=== PATIENT | male | born 1995 | race Caucasian/White ===

== ENCOUNTER 2019-03-27 09:22 | Inpatient (IN) | payer MEDICAID ==
[~2019-03-27] VITALS: Ht 180.3 cm; Wt 139.3 kg
[2019-03-27] MEDS ORDERED: DIVA125T32 PO (09:49)
[2019-03-27] MEDS ORDERED: HALO50VI4 IM (09:49)
[2019-03-27 09:54] LABS: BASOPHILS % (AUTO) 0.8 % (0.0-2.0); EOSINOPHILS % (AUTO) 0.5 % (1.0-6.0); HEMATOCRIT 42.3 % (41-53); LYMPHOCYTES % (AUTO) 18.7 % (22.0-44.0); MEAN CORPUSCULAR HEMOGLOBIN 28.1 pg (26.0-34.0); MEAN CORPUSCULAR HGB CONC 33.2 G/dL (31.0-37.0); MEAN CORPUSCULAR VOLUME 85 fL (80-100); MONOCYTES # (AUTO) 0.4 K/uL (0.1-1.0); MONOCYTES % (AUTO) 7.8 % (2.0-9.0); NEUTROPHILS # (AUTO) 3.9 K/uL (1.8-7.7); NEUTROPHILS % (AUTO) 72.2 % (40.0-70.0); PLATELET COUNT (AUTO) 269 K/uL (150-450); RED BLOOD CELL COUNT(AUTO) 4.99 MIL/uL (4.50-5.90); RED CELL DISTRIBUTION WIDTH 14.4 % (11.5-14.5)
[2019-03-27 09:59] LABS: AMPHET/METH SCREEN,URINE NEGATIVE (NEGATIVE); BARBITURATE SCREEN, URINE NEGATIVE (NEGATIVE); BENZODIAZEPINES SCREEN,URINE NEGATIVE (NEGATIVE); CANNABINOID SCREEN,URINE POSITIVE (NEGATIVE); COCAINE SCREEN,URINE NEGATIVE (NEGATIVE); METHADONE SCREEN, URINE NEGATIVE (NEGATIVE); OPIATE SCREEN,URINE NEGATIVE (NEGATIVE)
[2019-03-27 10:00] LABS: PHENCYCLIDINE SCREEN,URINE NEGATIVE (NEGATIVE)
[2019-03-27 10:01] LABS: ANION GAP 9 mmol/L (8-16); CALCIUM, TOTAL 9.2 mg/dL (8.8-10.5); CARBON DIOXIDE 26 mmol/L (22-29); CHLORIDE 106 mmol/L (98-107); CREATININE 0.83 mg/dL (0.60-1.30); GLOMERULAR FILTR. RATE CALC > 60 mL/min (>60); GLUCOSE,RANDOM 102 mg/dL (70-110); SODIUM SERUM 141 mmol/L (136-145); UREA NITROGEN, BLOOD 17 mg/dL (7-18)
[2019-03-27 10:05] LABS: ALANINE AMINOTRANSFERASE 90 U/L (12-78); ALKALINE PHOSPHATASE 97 U/L (46-116); ASPARTATE AMINOTRANSFERASE 33 U/L (15-37); BILIRUBIN,TOTAL 0.2 mg/dL (0.1-1.0); TOTAL PROTEIN, SERUM 8.2 g/dL (6.4-8.2)
[2019-03-27 10:48] LABS: VALPROIC ACID 3 mcg/mL (50-100)
[2019-03-27] MEDS ORDERED: LORazepam 2 MG TABLET PO ONE (13:30)
[2019-03-27] MEDS ORDERED: OLANZapine 5 MG TABLET PO ONE (13:30)
[2019-03-27 16:52] VITALS: BP 153/91
[2019-03-27] MEDS ORDERED: MAG HYDROX/AL HYDROX/SIMETH ES 30 ML SUSPENSION UDCUP PO PRN (17:00)
[2019-03-27] MEDS ORDERED: LOPERAMIDE HCL 2 MG CAPSULE PO PRN (17:00)
[2019-03-27] MEDS ORDERED: DOCUSATE SODIUM 100 MG CAPSULE PO PRN (17:00)
[2019-03-27] MEDS ORDERED: CloNIDine HCL 0.1 MG TABLET PO PRN (17:00)
[2019-03-27] MEDS ORDERED: ACETAMINOPHEN 325 MG TABLET PO PRN (17:00)
[2019-03-27] MEDS ORDERED: ONDANSETRON HCL 4 MG TABLET PO PRN (17:00)
[2019-03-27] MEDS ORDERED: GuaiFENesin/D-METHORPHAN [SUGAR-FREE] 200-20MG/10 ML SYRUP UDCUP PO PRN (17:00)
[2019-03-27] MEDS ORDERED: IBUPROFEN 400 MG TABLET PO PRN (17:00)
[2019-03-27] MEDS ORDERED: NICOTINE 14 MG/24 HOUR PATCH TD PRN (17:00)
[2019-03-27] MEDS ORDERED: ALBUTEROL SULFATE HFA 90 MCG/PUFF 8 GM INHALER IH PRN (17:00)
[2019-03-27] MEDS ORDERED: MAGNESIUM HYDROXIDE SUSPENSION 30 ML UDCUP PO PRN (17:00)
[2019-03-27] MEDS ORDERED: PETROLATUM,WHITE 28 GM JELLY TP PRN (17:00)
[2019-03-27] MEDS: AmLODIPine BESYLATE 5 MG TABLET PO SCH (17:21)
[2019-03-28 03:00] VITALS: BP 126/82
[2019-03-28 07:22] LABS: BASOPHILS % (AUTO) 0.7 % (0.0-2.0); HEMATOCRIT 43.1 % (41-53); HEMOGLOBIN 14.2 g/dL (13.5-17.5); LYMPHOCYTES # (AUTO) 1.7 K/uL (1.0-4.8); LYMPHOCYTES % (AUTO) 30.9 % (22.0-44.0); MEAN CORPUSCULAR HEMOGLOBIN 28.2 pg (26.0-34.0); MEAN CORPUSCULAR VOLUME 86 fL (80-100); MONOCYTES # (AUTO) 0.5 K/uL (0.1-1.0); MONOCYTES % (AUTO) 8.4 % (2.0-9.0); NEUTROPHILS # (AUTO) 3.3 K/uL (1.8-7.7); PLATELET COUNT (AUTO) 269 K/uL (150-450); RED BLOOD CELL COUNT(AUTO) 5.05 MIL/uL (4.50-5.90); RED CELL DISTRIBUTION WIDTH 14.2 % (11.5-14.5)
[2019-03-28 07:49] LABS: HEMOGLOBIN A1C 5.6 % (4.5-6.2)
[2019-03-28 07:50] LABS: ALANINE AMINOTRANSFERASE 81 U/L (12-78); ALBUMIN 3.7 g/dL (3.4-5.0); ALKALINE PHOSPHATASE 91 U/L (46-116); ANION GAP 6 mmol/L (8-16); ASPARTATE AMINOTRANSFERASE 34 U/L (15-37); BILIRUBIN,TOTAL 0.3 mg/dL (0.1-1.0); CALCIUM, TOTAL 9.2 mg/dL (8.8-10.5); CARBON DIOXIDE 30 mmol/L (22-29); CHLORIDE 109 mmol/L (98-107); CHOLESTEROL 189 mg/dL (131-200); CREATININE 0.75 mg/dL (0.60-1.30); GLOMERULAR FILTR. RATE CALC > 60 mL/min (>60); GLUCOSE,RANDOM 101 mg/dL (70-110); HDL CHOLESTEROL 47 mg/dL (40-60); LDL CHOL (CALC.) 121 mg/dL (0-130); POTASSIUM 4.9 mmol/L (3.5-5.1); SODIUM SERUM 145 mmol/L (136-145); THYROID STIMULATING HORMONE 0.96 uIU/mL (0.36-3.74); TOTAL PROTEIN, SERUM 7.2 g/dL (6.4-8.2); TRIGLYCERIDES 106 mg/dL (15-150); UREA NITROGEN, BLOOD 10 mg/dL (7-18)
[2019-03-28] MEDS: AmLODIPine BESYLATE 5 MG TABLET PO SCH (08:00)
[2019-03-28 08:17] VITALS: BP 140/66
[2019-03-28] MEDS: DIVALPROEX SODIUM 250 MG ER TABLET PO SCH (16:09)
[2019-03-28 16:40] VITALS: BP 151/76
[2019-03-29 06:42] VITALS: BP 132/78
[2019-03-29] MEDS: HALOPERIDOL 5 MG TABLET PO PRN (08:12)
[2019-03-29] MEDS: AmLODIPine BESYLATE 5 MG TABLET PO SCH (08:12)
[2019-03-29] MEDS: DIVALPROEX SODIUM 250 MG ER TABLET PO SCH ×2 (08:13→16:48)
[2019-03-29] MEDS: LORazepam 2 MG TABLET PO PRN ×2 (08:13→16:49)
[2019-03-29 08:14] VITALS: BP 126/73
[2019-03-29] MEDS: ARIPiprazole 10 MG TABLET PO SCH ×2 (10:00→16:49)
[2019-03-29 16:00] VITALS: BP 141/73
[2019-03-29] MEDS: ZOLPIDEM TARTRATE 10 MG TABLET PO PRN (20:51)
[2019-03-30 00:34] VITALS: BP 120/58
[2019-03-30 08:12] VITALS: BP 124/65
[2019-03-30] MEDS: AmLODIPine BESYLATE 5 MG TABLET PO SCH (08:29)
[2019-03-30] MEDS: ARIPiprazole 10 MG TABLET PO SCH ×2 (08:29→16:31)
[2019-03-30] MEDS: DIVALPROEX SODIUM 250 MG ER TABLET PO SCH ×2 (08:29→16:31)
[2019-03-30] MEDS ORDERED: HALOPERIDOL LACTATE 5 MG/ML VIAL ONE (09:40)
[2019-03-30] MEDS ORDERED: LORazepam 2 MG/ML VIAL ONE (09:41)
[2019-03-30] MEDS ORDERED: HALOPERIDOL LACTATE 5 MG/ML VIAL IM ONE (09:45)
[2019-03-30] MEDS ORDERED: LORazepam 2 MG/ML VIAL IM ONE (09:45)
[2019-03-30] MEDS ORDERED: DiphenhydrAMINE HCL 50 MG/ML VIAL IM ONE (09:45)
[2019-03-30] MEDS ORDERED: ARIPiprazole ER SUSPENSION 400 MG PRE-FILLED DUAL CHAMBER SYRINGE IM ONE (10:45)
[2019-03-30 16:00] VITALS: BP 116/70
[2019-03-30] MEDS: ZOLPIDEM TARTRATE 10 MG TABLET PO PRN (20:30)
[2019-03-31 06:17] VITALS: BP 139/79
[2019-03-31 07:59] VITALS: BP 134/74
[2019-03-31] MEDS: AmLODIPine BESYLATE 5 MG TABLET PO SCH (08:02)
[2019-03-31] MEDS: ARIPiprazole 10 MG TABLET PO SCH ×2 (08:02→17:38)
[2019-03-31] MEDS: DIVALPROEX SODIUM 250 MG ER TABLET PO SCH ×2 (08:02→17:38)
[2019-03-31] MEDS: LORazepam 2 MG TABLET PO PRN ×3 (08:02→21:38)
[2019-03-31 16:06] VITALS: BP 127/89
[2019-03-31] MEDS: ZOLPIDEM TARTRATE 10 MG TABLET PO PRN (21:38)
[2019-04-01 06:08] VITALS: BP 125/93
[2019-04-01] MEDS: ARIPiprazole 10 MG TABLET PO SCH ×2 (08:13→16:05)
[2019-04-01] MEDS: AmLODIPine BESYLATE 5 MG TABLET PO SCH (08:13)
[2019-04-01] MEDS: DIVALPROEX SODIUM 250 MG ER TABLET PO SCH ×2 (08:13→16:05)
[2019-04-01 08:35] VITALS: BP 142/80
[2019-04-01 16:00] VITALS: BP 145/64
[2019-04-01] MEDS: HALOPERIDOL 5 MG TABLET PO PRN (16:05)
[2019-04-01] MEDS: LORazepam 2 MG TABLET PO PRN ×2 (16:05→20:30)
[2019-04-01] MEDS: ZOLPIDEM TARTRATE 10 MG TABLET PO PRN (20:30)
[2019-04-02 06:28] VITALS: BP 150/73
[2019-04-02] MEDS: LORazepam 2 MG TABLET PO PRN ×3 (06:50→20:46)
[2019-04-02] MEDS: DIVALPROEX SODIUM 250 MG ER TABLET PO SCH ×2 (08:00→16:24)
[2019-04-02] MEDS: AmLODIPine BESYLATE 5 MG TABLET PO SCH (08:00)
[2019-04-02 08:05] VITALS: BP 139/89
[2019-04-02] MEDS: ARIPiprazole 10 MG TABLET PO SCH ×2 (08:30→16:24)
[2019-04-02 16:05] VITALS: BP 140/81
[2019-04-02] MEDS: HALOPERIDOL 5 MG TABLET PO PRN (16:24)
[2019-04-03 06:10] VITALS: BP 134/86
[2019-04-03] MEDS: DIVALPROEX SODIUM 250 MG ER TABLET PO SCH ×2 (08:07→16:01)
[2019-04-03] MEDS: AmLODIPine BESYLATE 5 MG TABLET PO SCH (08:07)
[2019-04-03] MEDS: ARIPiprazole 10 MG TABLET PO SCH ×2 (08:07→16:01)
[2019-04-03 08:38] VITALS: BP 140/99
[2019-04-03] MEDS: LORazepam 2 MG TABLET PO PRN ×2 (16:01→20:31)
[2019-04-03] MEDS: HALOPERIDOL 5 MG TABLET PO PRN (16:01)
[2019-04-03 17:00] VITALS: BP 162/84
[2019-04-03] MEDS ORDERED: AmLODIPine BESYLATE 5 MG TABLET PO ONE (18:00)
[2019-04-03] MEDS: ZOLPIDEM TARTRATE 10 MG TABLET PO PRN (20:31)
[2019-04-04 03:45] VITALS: BP 136/86
[2019-04-04 08:24] VITALS: BP 140/88
[2019-04-04] MEDS: ARIPiprazole 10 MG TABLET PO SCH ×2 (09:04→18:00)
[2019-04-04] MEDS: LORazepam 2 MG TABLET PO PRN ×2 (09:04→16:34)
[2019-04-04] MEDS: DIVALPROEX SODIUM 250 MG ER TABLET PO SCH ×2 (09:04→18:00)
[2019-04-04] MEDS: HALOPERIDOL 5 MG TABLET PO PRN ×2 (09:04→16:34)
[2019-04-04] MEDS: AmLODIPine BESYLATE 10 MG TABLET PO SCH (10:40)
[2019-04-04 16:00] VITALS: BP 144/83
[2019-04-04] MEDS ORDERED: DiphenhydrAMINE HCL 50 MG/ML VIAL IM ONE (19:15)
[2019-04-04] MEDS ORDERED: LORazepam 2 MG/ML VIAL IM ONE (19:15)
[2019-04-04] MEDS ORDERED: HALOPERIDOL LACTATE 5 MG/ML VIAL IM ONE (19:15)
[2019-04-05 05:43] VITALS: BP 132/85
[2019-04-05 08:01] VITALS: BP 151/89
[2019-04-05] MEDS: ARIPiprazole 10 MG TABLET PO SCH (08:24)
[2019-04-05] MEDS: AmLODIPine BESYLATE 10 MG TABLET PO SCH (08:24)
[2019-04-05] MEDS: DIVALPROEX SODIUM 250 MG ER TABLET PO SCH ×2 (08:24→16:34)
[2019-04-05 16:00] VITALS: BP 139/81
[2019-04-05] MEDS: HALOPERIDOL 5 MG TABLET PO PRN (16:34)
[2019-04-05] MEDS: LORazepam 2 MG TABLET PO PRN (16:34)
[2019-04-06 00:12] VITALS: BP 140/80
[2019-04-06] MEDS: LORazepam 2 MG TABLET PO PRN ×4 (00:13→16:38)
[2019-04-06] MEDS: ZOLPIDEM TARTRATE 10 MG TABLET PO PRN ×2 (00:13→21:38)
[2019-04-06 08:01] VITALS: BP 128/68
[2019-04-06] MEDS: DIVALPROEX SODIUM 250 MG ER TABLET PO SCH ×2 (08:30→16:38)
[2019-04-06] MEDS: AmLODIPine BESYLATE 10 MG TABLET PO SCH (08:30)
[2019-04-06] MEDS: ARIPiprazole 10 MG TABLET PO SCH (08:30)
[2019-04-06] MEDS: HALOPERIDOL 5 MG TABLET PO PRN ×3 (08:30→16:38)
[2019-04-06 16:46] VITALS: BP 127/85
[2019-04-07 04:32] VITALS: BP 144/90
[2019-04-07 08:00] VITALS: BP 133/75
[2019-04-07] MEDS: ARIPiprazole 10 MG TABLET PO SCH (08:09)
[2019-04-07] MEDS: DIVALPROEX SODIUM 250 MG ER TABLET PO SCH ×2 (08:09→16:16)
[2019-04-07] MEDS: LORazepam 2 MG TABLET PO PRN ×2 (08:09→16:16)
[2019-04-07] MEDS: AmLODIPine BESYLATE 10 MG TABLET PO SCH (08:09)
[2019-04-07] MEDS: HALOPERIDOL 5 MG TABLET PO PRN (16:16)
[2019-04-07 21:31] VITALS: BP 137/71
[2019-04-08 05:21] VITALS: BP 135/72
[2019-04-08 08:06] VITALS: BP 154/76
[2019-04-08] MEDS: DIVALPROEX SODIUM 250 MG ER TABLET PO SCH ×2 (08:13→16:39)
[2019-04-08] MEDS: ARIPiprazole 10 MG TABLET PO SCH (08:13)
[2019-04-08] MEDS: AmLODIPine BESYLATE 10 MG TABLET PO SCH (08:13)
[2019-04-08 16:31] VITALS: BP 121/88
[2019-04-08] MEDS: LORazepam 2 MG TABLET PO PRN (16:39)
[2019-04-08] MEDS: HALOPERIDOL 5 MG TABLET PO PRN (16:39)
[2019-04-08] MEDS: ZOLPIDEM TARTRATE 10 MG TABLET PO PRN (20:08)
[2019-04-09 00:12] VITALS: BP 137/84
[2019-04-09] MEDS: LORazepam 2 MG TABLET PO PRN ×2 (00:17→09:12)
[2019-04-09 08:08] VITALS: BP 138/81
[2019-04-09] MEDS: ARIPiprazole 10 MG TABLET PO SCH (09:11)
[2019-04-09] MEDS: DIVALPROEX SODIUM 250 MG ER TABLET PO SCH ×2 (09:11→16:46)
[2019-04-09] MEDS: AmLODIPine BESYLATE 10 MG TABLET PO SCH (09:11)
[2019-04-09] MEDS: HALOPERIDOL 5 MG TABLET PO PRN (09:12)
[2019-04-10 00:44] VITALS: BP 125/72
[2019-04-10] MEDS: DIVALPROEX SODIUM 250 MG ER TABLET PO SCH ×2 (08:13→16:22)
[2019-04-10] MEDS: AmLODIPine BESYLATE 10 MG TABLET PO SCH (08:13)
[2019-04-10] MEDS: ARIPiprazole 10 MG TABLET PO SCH (08:13)
[2019-04-10] MEDS: HALOPERIDOL 5 MG TABLET PO PRN ×3 (10:49→20:29)
[2019-04-10] MEDS: LORazepam 2 MG TABLET PO PRN ×3 (10:49→20:29)
[2019-04-10 12:34] VITALS: BP 142/84
[2019-04-10 16:08] VITALS: BP 140/83
[2019-04-10] MEDS: ZOLPIDEM TARTRATE 10 MG TABLET PO PRN (20:29)
[2019-04-11 00:23] VITALS: BP 140/72
[2019-04-11] MEDS: ARIPiprazole 10 MG TABLET PO SCH (08:24)
[2019-04-11] MEDS: AmLODIPine BESYLATE 10 MG TABLET PO SCH (08:24)
[2019-04-11] MEDS: DIVALPROEX SODIUM 250 MG ER TABLET PO SCH ×2 (08:24→16:04)
[2019-04-11 10:15] VITALS: BP 140/82
[2019-04-11] MEDS: HALOPERIDOL 5 MG TABLET PO PRN ×2 (16:04→20:20)
[2019-04-11] MEDS: LORazepam 2 MG TABLET PO PRN ×2 (16:04→20:20)
[2019-04-11 16:18] VITALS: BP 131/97
[2019-04-11] MEDS: ZOLPIDEM TARTRATE 10 MG TABLET PO PRN (20:20)
[2019-04-12 02:53] VITALS: BP 129/85
[2019-04-12 08:09] VITALS: BP 127/78
[2019-04-12] MEDS: ARIPiprazole 10 MG TABLET PO SCH (08:26)
[2019-04-12] MEDS: AmLODIPine BESYLATE 10 MG TABLET PO SCH (08:26)
[2019-04-12] MEDS: DIVALPROEX SODIUM 250 MG ER TABLET PO SCH ×2 (08:26→16:25)
[2019-04-12] MEDS: LORazepam 2 MG TABLET PO PRN (08:26)
[2019-04-12 16:00] VITALS: BP 134/88
[2019-04-13 02:41] VITALS: BP 132/81
[2019-04-13] MEDS: DIVALPROEX SODIUM 250 MG ER TABLET PO SCH (09:00)
[2019-04-13] MEDS: ARIPiprazole 10 MG TABLET PO SCH (09:00)
[2019-04-13] MEDS: AmLODIPine BESYLATE 10 MG TABLET PO SCH (09:00)
[2019-04-13] MEDS ORDERED: DIVA250T45 PO (11:44)
[2019-04-13] MEDS ORDERED: ARIP10TA8 PO (11:46)
[2019-04-13] MEDS ORDERED: AMLO5TAB4 PO (11:47)
== END 2019-04-13 13:20 | disposition home or self-care (01) | DRG 750 ==
LOC: EMS 09:25 → B3A 15:04
PROVIDERS: ADMIT Psychiatry & Neurology Child & Adolescent Psychiatry; ATTEND Psychiatry & Neurology Child & Adolescent Psychiatry
DX: F25.0 Schizoaffective disorder, bipolar type (principal); Z68.41 Body mass index [BMI] 40.0-44.9, adult; B17.9 Acute viral hepatitis, unspecified; R74.0 Nonspecific elevation of levels of transaminase and lactic acid dehydrogenase [LDH]; E66.9 Obesity, unspecified; R45.87 Impulsiveness; Z59.0 Homelessness; Z91.14 Patient's other noncompliance with medication regimen
CPT/HCPCS: 83036; 84443; G0480; J0401; J1200; J1630; J2060

== ENCOUNTER 2019-10-19 01:33 | Inpatient (IN) | payer MEDICAID, OTHER ==
[~2019-10-19] VITALS: Ht 182.9 cm; Wt 146.8 kg
[~2019-10-19 01:33] MED LIST: AMLO5TAB4 PO; ARIP10TA8 PO; DIVA250T45 PO
[2019-10-19 02:10] LABS: BASOPHILS % (AUTO) 0.7 % (0.0-2.0); EOSINOPHILS % (AUTO) 0.4 % (1.0-6.0); HEMATOCRIT 42.6 % (41-53); HEMOGLOBIN 14.4 g/dL (13.5-17.5); LYMPHOCYTES # (AUTO) 2.1 K/uL (1.0-4.8); LYMPHOCYTES % (AUTO) 23.6 % (22.0-44.0); MEAN CORPUSCULAR HEMOGLOBIN 28.6 pg (26.0-34.0); MEAN CORPUSCULAR HGB CONC 33.8 G/dL (31.0-37.0); MEAN CORPUSCULAR VOLUME 85 fL (80-100); MONOCYTES # (AUTO) 0.7 K/uL (0.1-1.0); MONOCYTES % (AUTO) 7.2 % (2.0-9.0); NEUTROPHILS # (AUTO) 6.2 K/uL (1.8-7.7); NEUTROPHILS % (AUTO) 68.1 % (40.0-70.0); PLATELET COUNT (AUTO) 302 K/uL (150-450); RED BLOOD CELL COUNT(AUTO) 5.05 MIL/uL (4.50-5.90)
[2019-10-19 02:19] LABS: ANION GAP 12 mmol/L (8-16); CALCIUM, TOTAL 9.3 mg/dL (8.8-10.5); CARBON DIOXIDE 26 mmol/L (22-29); CHLORIDE 104 mmol/L (98-107); CREATININE 0.78 mg/dL (0.60-1.30); GLOMERULAR FILTR. RATE CALC > 60 mL/min (>60); GLUCOSE,RANDOM 104 mg/dL (70-110); POTASSIUM 4.1 mmol/L (3.5-5.1); SODIUM SERUM 142 mmol/L (136-145); UREA NITROGEN, BLOOD 6 mg/dL (7-18)
[2019-10-19 02:25] LABS: ALANINE AMINOTRANSFERASE 156 U/L (12-78); ALKALINE PHOSPHATASE 84 U/L (46-116); ASPARTATE AMINOTRANSFERASE 44 U/L (15-37); BILIRUBIN,TOTAL 0.2 mg/dL (0.1-1.0); TOTAL PROTEIN, SERUM 7.9 g/dL (6.4-8.2)
[2019-10-19] MEDS ORDERED: IBUPROFEN 800 MG TABLET PO ONE (02:30)
[2019-10-19] MEDS ORDERED: QUEtiapine FUMARATE 100 MG TABLET PO PRN (04:00)
[2019-10-19] MEDS ORDERED: INFLUENZA VIRUS VACCINE QVS 2019-20 (3YR+)/PF 60 MCG/0.5 ML SYRINGE IM ONE (05:30)
[2019-10-19 06:03] VITALS: BP 137/89
[2019-10-19 08:17] VITALS: BP 137/79
[2019-10-19] MEDS ORDERED: TUBERCULIN, PURIFIED PROTEIN DERIVATIVE 5 TU/0.1 ML SYRINGE ID ONE (14:30)
[2019-10-19] MEDS ORDERED: GuaiFENesin/D-METHORPHAN [SUGAR-FREE] 200-20MG/10 ML SYRUP UDCUP PO PRN (14:30)
[2019-10-19] MEDS ORDERED: HydrOXYzine PAMOATE 50 MG CAPSULE PO PRN (14:30)
[2019-10-19] MEDS ORDERED: PROMETHAZINE HCL 25 MG TABLET PO PRN (14:30)
[2019-10-19] MEDS ORDERED: PALIPERIDONE 1.5 MG ER TABLET PO PRN (14:30)
[2019-10-19] MEDS ORDERED: PALIPERIDONE PALMITATE 234 MG/1.5 ML SYRINGE IM ONE (14:30)
[2019-10-19] MEDS ORDERED: AMLO10TA7 PO (14:31)
[2019-10-19 16:10] VITALS: BP 163/88
[2019-10-19] MEDS: THIAMINE HCL 100 MG TABLET PO SCH (16:27)
[2019-10-19] MEDS: ZOLPIDEM TARTRATE 10 MG TABLET PO PRN (20:50)
[2019-10-19] MEDS ORDERED: PALIPERIDONE 3 MG ER TABLET PO SCH (21:00)
[2019-10-20 04:42] VITALS: BP 115/60
[2019-10-20 08:05] VITALS: BP 139/79
[2019-10-20] MEDS: NALTREXONE HCL 50 MG TABLET PO SCH (08:28)
[2019-10-20] MEDS: MULTIVITAMINS WITH MINERALS, THERAPEUTIC TABLET PO SCH (08:28)
[2019-10-20] MEDS: FOLIC ACID 1 MG TABLET PO SCH (08:28)
[2019-10-20] MEDS: THIAMINE HCL 100 MG TABLET PO SCH ×2 (08:28→16:17)
[2019-10-20 09:02] LABS: HEMOGLOBIN A1C 5.4 % (4.5-6.2)
[2019-10-20 09:53] LABS: CHOL/HDL RATIO 4.2 (4.2-7.3); FREE T4 (FREE THYROXINE) 0.84 ng/dL (0.76-1.46); THYROID STIMULATING HORMONE 1.06 uIU/mL (0.36-3.74)
[2019-10-20] MEDS: LORazepam 2 MG TABLET PO PRN ×2 (11:25→16:17)
[2019-10-20 16:06] VITALS: BP 137/83
[2019-10-20] MEDS: ZOLPIDEM TARTRATE 10 MG TABLET PO PRN (20:21)
[2019-10-21 06:02] VITALS: BP 132/74
[2019-10-21 08:30] VITALS: BP 158/83
[2019-10-21] MEDS: FOLIC ACID 1 MG TABLET PO SCH (08:42)
[2019-10-21] MEDS: THIAMINE HCL 100 MG TABLET PO SCH ×2 (08:43→16:16)
[2019-10-21] MEDS: MULTIVITAMINS WITH MINERALS, THERAPEUTIC TABLET PO SCH (08:43)
[2019-10-21] MEDS: NALTREXONE HCL 50 MG TABLET PO SCH (08:43)
[2019-10-21] MEDS: LORazepam 2 MG TABLET PO PRN (16:17)
[2019-10-21 17:03] VITALS: BP 126/79
[2019-10-21] MEDS: ZOLPIDEM TARTRATE 10 MG TABLET PO PRN (20:45)
[2019-10-21] MEDS: DIVALPROEX SODIUM 500 MG ER TABLET PO SCH (20:45)
[2019-10-22 05:57] VITALS: BP 127/77
[2019-10-22 08:00] VITALS: BP 131/69
[2019-10-22] MEDS: FOLIC ACID 1 MG TABLET PO SCH (08:10)
[2019-10-22] MEDS: THIAMINE HCL 100 MG TABLET PO SCH ×2 (08:10→16:01)
[2019-10-22] MEDS: NALTREXONE HCL 50 MG TABLET PO SCH (08:10)
[2019-10-22] MEDS: MULTIVITAMINS WITH MINERALS, THERAPEUTIC TABLET PO SCH (08:10)
[2019-10-22 16:08] VITALS: BP 139/89
[2019-10-22] MEDS: DIVALPROEX SODIUM 500 MG ER TABLET PO SCH (20:23)
[2019-10-23 06:59] VITALS: BP 132/76
[2019-10-23] MEDS: FOLIC ACID 1 MG TABLET PO SCH (08:00)
[2019-10-23] MEDS: THIAMINE HCL 100 MG TABLET PO SCH ×2 (08:00→16:31)
[2019-10-23] MEDS: NALTREXONE HCL 50 MG TABLET PO SCH (08:00)
[2019-10-23] MEDS: MULTIVITAMINS WITH MINERALS, THERAPEUTIC TABLET PO SCH (08:00)
[2019-10-23 08:10] VITALS: BP 120/80
[2019-10-23] MEDS ORDERED: PALIPERIDONE PALMITATE 156 MG/ML SYRINGE IM ONE (09:00)
[2019-10-23 16:06] VITALS: BP 121/81
[2019-10-23] MEDS: DIVALPROEX SODIUM 500 MG ER TABLET PO SCH (20:44)
[2019-10-24 05:09] VITALS: BP 113/72
[2019-10-24 08:27] VITALS: BP 149/68
[2019-10-24] MEDS: NALTREXONE HCL 50 MG TABLET PO SCH (09:06)
[2019-10-24] MEDS: MULTIVITAMINS WITH MINERALS, THERAPEUTIC TABLET PO SCH (09:06)
[2019-10-24] MEDS: FOLIC ACID 1 MG TABLET PO SCH (09:06)
[2019-10-24] MEDS: THIAMINE HCL 100 MG TABLET PO SCH ×2 (09:06→16:01)
[2019-10-24 16:00] VITALS: BP 129/77
[2019-10-24] MEDS: LORazepam 2 MG TABLET PO PRN (16:01)
[2019-10-24] MEDS: DIVALPROEX SODIUM 500 MG ER TABLET PO SCH (20:18)
[2019-10-25 05:31] VITALS: BP 125/80
[2019-10-25] MEDS: THIAMINE HCL 100 MG TABLET PO SCH (08:57)
[2019-10-25] MEDS: NALTREXONE HCL 50 MG TABLET PO SCH (08:57)
[2019-10-25] MEDS: FOLIC ACID 1 MG TABLET PO SCH (08:57)
[2019-10-25] MEDS: MULTIVITAMINS WITH MINERALS, THERAPEUTIC TABLET PO SCH (08:57)
[2019-10-25] MEDS ORDERED: DIVA-78 PO (09:14)
[2019-10-25] MEDS ORDERED: PALI117D IM (09:15)
[2019-10-25] MEDS ORDERED: NALT50TA6 PO (09:15)
[2019-11-16] MEDS ORDERED: PALIPERIDONE PALMITATE 117 MG/0.75 ML SYRINGE IM SCH (09:00)
== END 2019-10-25 10:15 | disposition home or self-care (01) | DRG 750 ==
LOC: EMS 01:34 → B3A 03:57
PROVIDERS: ADMIT Psychiatry & Neurology Psychiatry; ATTEND Psychiatry & Neurology Psychiatry
DX: F20.0 Paranoid schizophrenia (principal); Z91.19 Patient's noncompliance with other medical treatment and regimen; F12.90 Cannabis use, unspecified, uncomplicated; F60.0 Paranoid personality disorder; R45.87 Impulsiveness
CPT/HCPCS: 83036; 84439; 84443; 86592; 90686; G0480

== ENCOUNTER 2022-01-06 03:48 | Emergency (ER) | payer MEDICAID ==
[~2022-01-06] VITALS: Ht 182.9 cm; Wt 136.4 kg
[~2022-01-06 03:48] MED LIST changes: -AMLO5TAB4 PO; -ARIP10TA8 PO; +DIVA-112 PO; -DIVA250T45 PO; +NALT50TA6 PO; +PALI117D IM
[2022-01-06 03:53] VITALS: BP 150/70
== END 2022-01-06 06:36 | disposition left against medical advice (07) ==
LOC: EMS 03:52
DX: Z00.00 Encounter for general adult medical examination without abnormal findings (principal); Z53.21 Procedure and treatment not carried out due to patient leaving prior to being seen by health care provider

== ENCOUNTER 2022-09-10 11:55 | Emergency (ER) | payer MEDICAID ==
[~2022-09-10] VITALS: Ht 180.3 cm; Wt 127.3 kg
[2022-09-10 13:37] LABS: BASOPHILS % (AUTO) 0.5 % (0.0-2.0); EOSINOPHILS % (AUTO) 0.3 % (1.0-6.0); HEMATOCRIT 44.5 % (41-53); LYMPHOCYTES # (AUTO) 2.3 K/uL (1.0-4.8); LYMPHOCYTES % (AUTO) 22.5 % (22.0-44.0); MEAN CORPUSCULAR HEMOGLOBIN 29.3 pg (26.0-34.0); MEAN CORPUSCULAR HGB CONC 33.6 G/dL (31.0-37.0); MEAN CORPUSCULAR VOLUME 87 fL (80-100); MONOCYTES # (AUTO) 0.7 K/uL (0.1-1.0); MONOCYTES % (AUTO) 6.9 % (2.0-9.0); NEUTROPHILS # (AUTO) 7.3 K/uL (1.8-7.7); NEUTROPHILS % (AUTO) 69.8 % (40.0-70.0); PLATELET COUNT (AUTO) 232 K/uL (150-450); RED BLOOD CELL COUNT(AUTO) 5.11 MIL/uL (4.50-5.90)
[2022-09-10 13:45] LABS: ANION GAP 12 mmol/L (8-16); CARBON DIOXIDE 26 mmol/L (22-29); CHLORIDE 107 mmol/L (98-107); CREATININE 0.64 mg/dL (0.60-1.30); GLOMERULAR FILTR. RATE CALC > 60 mL/min (>60); GLUCOSE,RANDOM 100 mg/dL (70-110); POTASSIUM 3.3 mmol/L (3.5-5.1); SODIUM SERUM 145 mmol/L (136-145); UREA NITROGEN, BLOOD 6 mg/dL (7-18)
[2022-09-10 13:52] LABS: ALANINE AMINOTRANSFERASE 32 U/L (12-78); ALBUMIN 3.9 g/dL (3.4-5.0); ALKALINE PHOSPHATASE 94 U/L (46-116); ASPARTATE AMINOTRANSFERASE 32 U/L (15-37); BILIRUBIN,TOTAL 0.3 mg/dL (0.1-1.0); TOTAL PROTEIN, SERUM 7.8 g/dL (6.4-8.2)
[2022-09-10 17:27] VITALS: BP 122/64
== END 2022-09-10 17:43 | disposition home or self-care (01) ==
LOC: EMS 12:02
DX: F10.129 Alcohol abuse with intoxication, unspecified (principal); R45.1 Restlessness and agitation; F20.9 Schizophrenia, unspecified; Z87.39 Personal history of other diseases of the musculoskeletal system and connective tissue; Y90.6 Blood alcohol level of 120-199 mg/100 ml
CPT/HCPCS: 99283; 80053; 85025; 36415; G0480